=== PATIENT | male | born 1980 | race American Indian/Alaskan Native ===

== ENCOUNTER 2017-06-07 15:19 | Emergency (ER) | payer SELFPAY ==
[2017-06-07 15:45] VITALS: BP 141/104
== END 2017-06-07 16:25 | disposition left against medical advice (07) ==
LOC: ED 15:19
DX: E86.0 Dehydration (principal); Z53.21 Procedure and treatment not carried out due to patient leaving prior to being seen by health care provider
CPT/HCPCS: 36415; 93005; 93010

== ENCOUNTER 2017-06-28 20:00 | Emergency (ER) | payer SELFPAY ==
[2017-06-29 00:04] VITALS: BP 133/96
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
[2017-06-29] MEDS ORDERED: MOTRIN PO ONE (00:05)
[2017-06-29] MEDS ORDERED: BOOSTRIX IM ONE (00:05)
[2017-06-29] MEDS ORDERED: TORADOL IM ONE (00:23)
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
== END 2017-06-29 01:40 | disposition home or self-care (01) ==
LOC: ED 20:00
DX: S02.2XXA Fracture of nasal bones, initial encounter for closed fracture (principal); S00.531A Contusion of lip, initial encounter; Y08.89XA Assault by other specified means, initial encounter; Y93.9 Activity, unspecified; Y92.9 Unspecified place or not applicable; Y99.9 Unspecified external cause status
CPT/HCPCS: 70355; 70450; 70486; 90471; 90715; 96372; 99283; J1885